=== PATIENT | female | born 1965 | race Caucasian/White ===

== ENCOUNTER 2022-10-23 13:37 | Emergency (ER) | payer OTHER ==
[2022-10-23 13:51] VITALS: BP 141/92; PULSE 73; RESP 18; TEMP 98.7; BMI 21.4
== END 2022-10-23 15:05 | disposition home or self-care (01) ==
LOC: FER 13:37
DX: R21 Rash and other nonspecific skin eruption (principal); B02.9 Zoster without complications
CPT/HCPCS: 99283-25